=== PATIENT | male | born 1985 | race African-American/Black ===

== ENCOUNTER 2016-11-08 09:00 | Emergency (ER) | payer SELFPAY ==
[2016-11-08 13:12] VITALS: BP 122/50
== END 2016-11-08 13:14 | disposition home or self-care (01) ==
LOC: ER 10:34
DX: J01.90 Acute sinusitis, unspecified (principal); F17.210 Nicotine dependence, cigarettes, uncomplicated; F12.90 Cannabis use, unspecified, uncomplicated; I51.7 Cardiomegaly
CPT/HCPCS: 71010; 99283